=== PATIENT | male | born 1990 | race Caucasian/White ===

== ENCOUNTER → 2022-04-05 | Outpatient (CLI) | payer OTHER ==
[~2022-04-05] MED LIST: ANTIVERT 25MG T25 MG PO; BACTRIM DS TAB1 EACH PO; CELEXA20 MG PO; HYDROCODON-ACE1 EAC2 PO; KEFLEX CAP 500500 MG PO; LODINE CAP 300300 MG PO; OXYCODONE HCL5 MG PO; PHENERGAN 12.12.5 M1 PO; PROPRANOLOL HCL80 M1 PO; SUBOXONE 8 MG-1 EACH SL; SUBUTEX 8 MG TAB8 MG PO; TAB-A-VITE TA400 MC1 PO; ZOFRAN ODT 4 MG4 MG GT; ZYVOX600 MG PO
== END ==
LOC: HEART 5 15:22
DX: R00.2 Palpitations (principal)